=== PATIENT | female | born 1950 | race Caucasian/White ===

== ENCOUNTER 2016-10-30 03:24 | Emergency (ER) | payer OTHER ==
[2016-10-30 03:37] VITALS: BMI 30.5
--- NOTE | 2016-10-30 03:49 | PDOC ---
[id number] No Limitations - History of Present Illness Initial Comments: 10/30/16 05:51 The patient is a 65 year old female with a significant past medical history of bipolar disorder, breast cancer, gastric ulcer, pancreatic cyst who presents to the ED with complaint of abdominal pain and distended belly. Patient presents requesting pain medication. She states that she is able to eat. Denies use of alcohol. PCP - Dr. Falk <Manisha Adame - Last Filed: 10/30/16 06:11> <Bell Márquez - Last Filed: 11/04/16 21:53> - General Chief Complaint: Pain Stated Complaint: ABD PAIN Time Seen by Provider: 10/30/16 03:43 Past History <Manisha Adame - Last Filed: 10/30/16 06:11> - Past Medical History Anemia: No Asthma: No Cancer: Yes (Left breast) Cardiac Disorders: No CVA: No COPD: No CHF: No Dementia: No Diabetes: No GI Disorders: Yes (hx of gastric ulcer. pancreatic cyst) Disorders: No HTN: No Hypercholesterolemia: No Liver Disease: No Seizures: No Thyroid Disease: Yes - Surgical History Abdominal Surgery: No Appendectomy: No Cardiac Surgery: No Cholecystectomy: No Lung Surgery: Yes (removed rt sided partial lobe) Neurologic Surgery: No Orthopedic Surgery: Yes (rt knee surgery with infection) - Immunization History Immunization Up to Date: Yes - Psycho/Social/Smoking Cessation Hx Anxiety: No Suicidal Ideation: No Smoking Status: Yes Smoking History: Current every day smoker Have you smoked in the past 12 months: No Number of Cigarettes Smoked Daily: 20 Information on smoking cessation initiated: No 'Breaking Loose' booklet given: 03/23/16 Hx Alcohol Use: No Drug/Substance Use Hx: No Substance Use Type: None Hx Substance Use Treatment: No <Bell Márquez - Last Filed: 11/04/16 21:53> - Past Medical History Allergies/Adverse Reactions: Allergies Allergy/AdvReac Type Severity Reaction Status Date / Time No Known Drug Allergies Allergy Verified 10/30/16 03:33 Home Medications: Ambulatory Orders Divalproex [Depakote -] 1,000 mg PO BID 03/05/14 Risperidone [Risperdal] 2 mg PO HS 03/05/14 Levothyroxine [Synthroid -] 100 mcg PO DAILY 03/23/16 Oxycodone HCl/Acetaminophen [Percocet 5-325 mg Tablet] 1 tab PO Q6H PRN #10 tablet MDD 4 10/30/16 Review of Systems - Review of Systems Able to Perform ROS?: Yes Comments:: 10/30/16 05:52 GENERAL/CONSTITUTIONAL: No fever or chills. No weakness. HEAD, EYES, EARS, NOSE AND THROAT: No change in vision. No ear pain or discharge. No sore throat. CARDIOVASCULAR: No chest pain or shortness of breath. RESPIRATORY: No cough, wheezing, or hemoptysis. GASTROINTESTINAL: +abdominal pain, +distended abdomen. No nausea, vomiting, diarrhea or constipation. GENITOURINARY: No dysuria, frequency, or change in urination. MUSCULOSKELETAL: No joint or muscle swelling or pain. No neck or back pain. SKIN: No rash NEUROLOGIC: No headache, vertigo, loss of consciousness, or change in strength/ sensation. ENDOCRINE: No increased thirst. No abnormal weight change. HEMATOLOGIC/LYMPHATIC: No anemia, easy bleeding, or history of blood clots. ALLERGIC/IMMUNOLOGIC: No hives or skin allergy. <Manisha Adame - Last Filed: 10/30/16 06:11> *Physical Exam - Vital Signs Last Vital Signs Temp Pulse Resp BP Pulse Ox 98.3 F 84 14 116/77 99 10/30/16 03:34 10/30/16 03:34 10/30/16 03:34 10/30/16 03:34 10/30/16 03:34 - Physical Exam Comments: 10/30/16 05:57 GENERAL: +Afebrile. Awake, alert, and fully oriented, in no acute distress HEAD: No signs of trauma EYES: PERRLA, EOMI, sclera anicteric, conjunctiva clear ENT: Auricles normal inspection, hearing grossly normal, nares patent, oropharynx clear without exudates. Moist mucosa NECK: Normal ROM, supple, no lymphadenopathy, JVD, or masses LUNGS: Breath sounds equal, clear to auscultation bilaterally. No wheezes, and no crackles HEART: Regular rate and rhythm, normal S1 and S2, no murmurs, rubs or gallops ABDOMEN: +Small umbilical hernia, +Distended hernia with fluid wave ascites inside her belly, +Prominent veins on abdominal wall. Soft, nontender, normoactive bowel sounds. No guarding, no rebound. No flank pain. EXTREMITIES: Normal range of motion, no edema. No clubbing or cyanosis. No cords, erythema, or tenderness NEUROLOGICAL: Cranial nerves II through XII grossly intact. Normal speech, normal gait SKIN: Warm, Dry, normal turgor, no rashes or lesions noted. <Manisha Adame - Last Filed: 10/30/16 06:11> - Vital Signs Last Vital Signs Temp Pulse Resp BP Pulse Ox 98.3 F 84 14 116/77 99 10/30/16 03:34 10/30/16 03:34 10/30/16 03:34 10/30/16 03:34 10/30/16 03:34 <Bell Márquez - Last Filed: 11/04/16 21:53> ED Treatment Course - Medications Given in the ED: ED Medications Discontinued Medications Generic Name Dose Route Start Last Admin Trade Name Freq PRN Reason Stop Dose Admin Oxycodone/Acetaminophen 2 combo 10/30/16 03:54 10/30/16 03:58 Percocet 5/325 - PO 10/30/16 03:55 2 combo ONCE ONE Administration <Manisha Adame - Last Filed: 10/30/16 06:11> - LABORATORY CBC & Chemistry Diagram: 10/30/16 06:20 10/30/16 06:20 <Bell Márquez - Last Filed: 11/04/16 21:53> Medical Decision Making - Medical Decision Making 10/30/16 06:55 Pt comes with distended abdomen. SHe states that she has some pain. Admits that her abdomen is always distended. Pt's abdominal XR demonstrates distended loops of bowel consistent with the last XR she had. Pt has normal vitals; non tender abdomen and flank on exam. She is afebrile. SHe has normal HEENT. Pt will have labs sent. I will sign her out to the day ER attending who can disposition the patient. <Bell Márquez - Last Filed: 11/04/16 21:53> *DC/Admit/Observation/Transfer - Attestations Scribe Attestion: 10/30/16 05:52 Documentation prepared by KATINA Bird, acting as medical representative for Bell Márquez MD. <Manisha Adame - Last Filed: 10/30/16 06:11> <Bell Márquez - Last Filed: 11/04/16 21:53> Diagnosis at time of Disposition: Constipation - Discharge Dispostion Disposition: HOME Condition at time of disposition: Improved - Prescriptions Prescriptions: Oxycodone HCl/Acetaminophen [Percocet 5-325 mg Tablet] 1 tab PO Q6H PRN #10 tablet MDD 4 PRN Reason: Pain - Referrals Referrals: Luli Falk MD [Primary Care Provider] - - Patient Instructions Printed Discharge Instructions: Abdominal Hernia, DI for Constipation Additional Instructions: Activity as tolerated. Stay hydrated. Blood tests, a urine test, and an xray of the abdomen showed no acute abnormalities. Continue your medications as previously prescribed by your physician. You should follow up with Dr. Falk regarding today's emergency department visit. Continue follow up with your surgeon regarding your umbilical hernia. You should also see a GI specialist. Return to the emergency department for any new or concerning symptoms, particularly persistent or worsening pain, bloody vomit or stool, inability to have a bowel movement, fevers or chills.
[2016-10-30] MEDS ORDERED: OXYCODONE/APAP 5/325MG COMBO TABLET PO ONE (03:54)
[2016-10-30] MEDS ORDERED: OXYCODONE/APAP 5/325MG COMBO TABLET ONE (03:56)
[2016-10-30 07:14] LABS: BASOPHIL 0.7 % (0-2.0); EOSINOPHIL 2.7 % (0-4.5); MCH 32.6 pg (25.7-33.7); MEAN PLT VOLUME 6.9 fl (7.5-11.1); NEUTROPHILS 59.9 % (42.8-82.8); PLATELET COUNT 250 K/MM3 (134-434); RDW 15.4 % (11.6-15.6); WHITE BLOOD COUNT 6.2 K/mm3 (4.0-10.0)
[2016-10-30 07:33] LABS: ALBUMIN 3.7 g/dl (3.4-5.0); AMYLASE 40 U/L (25-115); ANION GAP 11 (8-16); BILIRUBIN,TOTAL 0.2 mg/dL (0.2-1.0); CALCIUM 8.9 mg/dL (8.5-10.1); CO2 25 mmol/L (21-32); CREATININE 0.9 mg/dL (0.55-1.02); GLUCOSE,RANDOM 116 mg/dL (74-106); SGOT/AST 40 U/L (15-37); SGPT/ALT 24 U/L (12-78)
[2016-10-30 07:34] LABS: ALK PHOS 49 U/L (45-117)
[2016-10-30 07:59] LABS: URINE APPEARANCE CLEAR; URINE BILIRUBIN NEGATIVE (NEGATIVE); URINE BLOOD NEGATIVE (NEGATIVE); URINE COLOR STRAW; URINE GLUCOSE (UA) NEGATIVE (NEGATIVE); URINE KETONE NEGATIVE (NEGATIVE); URINE LEUK ESTERASE NEGATIVE (NEGATIVE); URINE NITRITE NEGATIVE (NEGATIVE); URINE PROTEIN NEGATIVE (NEGATIVE); URINE UROBILINOGEN NEGATIVE E.U./dl (0.2-1.0)
--- NOTE | 2016-10-30 09:44 | PDOC ---
*Physical Exam - Vital Signs Last Vital Signs Temp Pulse Resp BP Pulse Ox 98.3 F 80 18 133/85 99 10/30/16 03:34 10/30/16 07:15 10/30/16 07:15 10/30/16 07:15 10/30/16 07:15 - Physical Exam Comments: 10/30/16 09:40 Vital signs normal. Abdomen distended but soft and nontender, easily reducible umbilical hernia that is chronic. No evidence of volume overload Patient is well-appearing, walking all over the emergency room, speaking full sentences, asking to go home. ED Treatment Course - LABORATORY CBC & Chemistry Diagram: 10/30/16 06:20 10/30/16 06:20 - ADDITIONAL ORDERS Additional order review: Laboratory Results 10/30/16 10/30/16 06:24 06:20 Sodium 137 Potassium 4.1 Chloride 101 Carbon Dioxide 25 Anion Gap 11 BUN 11 Creatinine 0.9 D Creat Clearance w eGFR > 60 Random Glucose 116 H D Calcium 8.9 Total Bilirubin 0.2 D AST 40 H ALT 24 D Alkaline Phosphatase 49 D Total Protein 7.0 Albumin 3.7 Total Amylase 40 Lipase 321 Urine Color Straw Urine Appearance Clear Urine pH 6.0 Ur Specific [place] 1.009 Urine Protein Negative Urine Glucose (UA) Negative Urine Ketones Negative Urine Blood Negative Urine Nitrite Negative Urine Bilirubin Negative Urine Urobilinogen Negative Ur Leukocyte Esterase Negative 10/30/16 06:20 RBC 3.75 MCV 93.0 MCHC 35.0 RDW 15.4 MPV 6.9 L Neutrophils % 59.9 Lymphocytes % 30.6 D Monocytes % 6.1 Eosinophils % 2.7 Basophils % 0.7 - Medications Given in the ED: ED Medications Discontinued Medications Generic Name Dose Route Start Last Admin Trade Name Freq PRN Reason Stop Dose Admin Oxycodone/Acetaminophen 2 combo 10/30/16 03:54 10/30/16 03:58 Percocet 5/325 - PO 10/30/16 03:55 2 combo ONCE ONE Administration Medical Decision Making - Medical Decision Making 10/30/16 09:40 Received signout on this 66-year-old female with chronic abdominal complaints, presented here with some distention but otherwise unremarkable exam. Abdominal x -ray showed chronic small bowel distention, read as unchanged and without acute pathology by radiology. Labs are within normal limits, no leukocytosis, urinalysis clear. Has follow-up appointment with her primary physician on Sunday, wants to go home and is tolerating by mouth, has no red flags on history or physical exam, understands return criteria. *DC/Admit/Observation/Transfer Diagnosis at time of Disposition: Constipation Qualifiers: Constipation type: unspecified constipation type Qualified Code(s): K59.00 - Constipation, unspecified - Discharge Dispostion Disposition: HOME Condition at time of disposition: Improved - Prescriptions Prescriptions: Oxycodone HCl/Acetaminophen [Percocet 5-325 mg Tablet] 1 tab PO Q6H PRN #10 tablet MDD 4 PRN Reason: Pain - Referrals Referrals: Luli Falk MD [Primary Care Provider] - - Patient Instructions Printed Discharge Instructions: DI for Constipation, Abdominal Hernia Additional Instructions: Activity as tolerated. Stay hydrated. Blood tests, a urine test, and an xray of the abdomen showed no acute abnormalities. Continue your medications as previously prescribed by your physician. You should follow up with Dr. Falk regarding today's emergency department visit. Continue follow up with your surgeon regarding your umbilical hernia. You should also see a GI specialist. Return to the emergency department for any new or concerning symptoms, particularly persistent or worsening pain, bloody vomit or stool, inability to have a bowel movement, fevers or chills. - Post Discharge Activity
[2016-10-30 09:59] VITALS: BP 129/83; PULSE 68; TEMP 98.4
== END 2016-10-30 09:59 | disposition home or self-care (01) ==
LOC: JER 03:24
DX: K59.00 Constipation, unspecified (principal); F31.9 Bipolar disorder, unspecified; E07.9 Disorder of thyroid, unspecified; Z87.19 Personal history of other diseases of the digestive system; Z85.3 Personal history of malignant neoplasm of breast
CPT/HCPCS: 36415; 74020-TC; 80053; 81003; 82150; 83690; 85025; 99283-25

== ENCOUNTER 2016-11-10 01:15 | Emergency (ER) | payer OTHER ==
[2016-11-10 01:27] VITALS: BP 120/89; PULSE 86; TEMP 98; BMI 29.0
[2016-11-10] MEDS ORDERED: traMADol HCL 50 MG TABLET PO ONE (04:49)
--- NOTE | 2016-11-10 04:49 | PDOC ---
History of Present Illness <Jd Lockwood - Last Filed: 11/10/16 05:10> - General History Source: Patient Exam Limitations: No Limitations - History of Present Illness Initial Comments: 11/10/16 05:12 The patient is a 66 year old female with significant past medical history of bipolar disorder, breast cancer, gastric ulcer, pancreatic cyst who presents to the ED BIBA for abdominal pain and abdominal distension. Denies nausea, vomiting , or diarrhea. Patient presents requesting pain medication. She states that she is able to eat. The patient denies fever, chills, cough, SOB, chest pain, and palpitations. PCP: Dr. Luli Falk <Rafaela Lyons - Last Filed: 11/10/16 05:13> - General Chief Complaint: Pain Stated Complaint: ABDOMINAL PAIN Past History - Past Medical History Anemia: No Asthma: No Cancer: Yes (Left breast) Cardiac Disorders: No CVA: No COPD: No CHF: No Dementia: No Diabetes: No GI Disorders: Yes (hx of gastric ulcer. pancreatic cyst) Disorders: No HTN: No Hypercholesterolemia: No Liver Disease: No Seizures: No Thyroid Disease: Yes - Surgical History Abdominal Surgery: No Appendectomy: No Cardiac Surgery: No Cholecystectomy: No Lung Surgery: Yes (removed rt sided partial lobe) Neurologic Surgery: No Orthopedic Surgery: Yes (rt knee surgery with infection) - Immunization History Immunization Up to Date: Yes - Psycho/Social/Smoking Cessation Hx Anxiety: No Suicidal Ideation: No Smoking Status: Yes Smoking History: Current every day smoker Have you smoked in the past 12 months: No Number of Cigarettes Smoked Daily: 4 Information on smoking cessation initiated: No 'Breaking Loose' booklet given: 03/23/16 Hx Alcohol Use: No Drug/Substance Use Hx: No Substance Use Type: None Hx Substance Use Treatment: No <Jd Lockwood - Last Filed: 11/10/16 05:10> <Rafaela Lyons - Last Filed: 11/10/16 05:13> - Past Medical History Allergies/Adverse Reactions: Allergies Allergy/AdvReac Type Severity Reaction Status Date / Time No Known Drug Allergies Allergy Verified 11/10/16 01:25 Home Medications: Ambulatory Orders Divalproex [Depakote -] 1,000 mg PO BID 03/05/14 Risperidone [Risperdal] 2 mg PO HS 03/05/14 Levothyroxine [Synthroid -] 100 mcg PO DAILY 03/23/16 Oxycodone HCl/Acetaminophen [Percocet 5-325 mg Tablet] 1 tab PO Q6H PRN #10 tablet MDD 4 10/30/16 Review of Systems - Review of Systems Able to Perform ROS?: Yes Comments:: 11/10/16 05:12 GENERAL/CONSTITUTIONAL: No fever or chills. No weakness. HEAD, EYES, EARS, NOSE AND THROAT: No change in vision. No ear pain or discharge. No sore throat. CARDIOVASCULAR: No chest pain or shortness of breath. RESPIRATORY: No cough, wheezing, or hemoptysis. GASTROINTESTINAL: +abdominal pain, abdominal distension No nausea, vomiting, diarrhea or constipation. GENITOURINARY: No dysuria, frequency, or change in urination. MUSCULOSKELETAL: No joint or muscle swelling or pain. No neck or back pain. SKIN: No rash NEUROLOGIC: No headache, vertigo, loss of consciousness, or change in strength/ sensation. ENDOCRINE: No increased thirst. No abnormal weight change. HEMATOLOGIC/LYMPHATIC: No anemia, easy bleeding, or history of blood clots. ALLERGIC/IMMUNOLOGIC: No hives or skin allergy. <Rafaela Lyons - Last Filed: 11/10/16 05:13> *Physical Exam - Vital Signs Last Vital Signs Temp Pulse Resp BP Pulse Ox 98.0 F 86 14 120/89 96 11/10/16 01:25 11/10/16 01:25 11/10/16 01:25 11/10/16 01:25 11/10/16 01:25 <Jd Lockwood - Last Filed: 11/10/16 05:10> - Vital Signs Last Vital Signs Temp Pulse Resp BP Pulse Ox 98.0 F 86 14 120/89 96 11/10/16 01:25 11/10/16 01:25 11/10/16 01:25 11/10/16 01:25 11/10/16 01:25 - Physical Exam Comments: 11/10/16 05:12 GENERAL: Awake, alert, and fully oriented, in no acute distress HEAD: No signs of trauma EYES: PERRLA, EOMI, sclera anicteric, conjunctiva clear ENT: Auricles normal inspection, hearing grossly normal, nares patent, oropharynx clear without exudates. Moist mucosa NECK: Normal ROM, supple, no lymphadenopathy, JVD, or masses LUNGS: Breath sounds equal, clear to auscultation bilaterally. No wheezes, and no crackles HEART: Regular rate and rhythm, normal S1 and S2, no murmurs, rubs or gallops ABDOMEN: Soft, diffuse tenderness, distended, normoactive bowel sounds. No guarding, no rebound. Reproducible umbilical hernia. EXTREMITIES: Normal range of motion, no edema. No clubbing or cyanosis. No cords, erythema, or tenderness NEUROLOGICAL: Cranial nerves II through XII grossly intact. Normal speech, normal gait SKIN: Warm, Dry, normal turgor, no rashes or lesions noted. <Rafaela Lyons - Last Filed: 11/10/16 05:13> ED Treatment Course - Medications Given in the ED: ED Medications Discontinued Medications Generic Name Dose Route Start Last Admin Trade Name Freq PRN Reason Stop Dose Admin Tramadol HCl 50 mg 11/10/16 04:49 11/10/16 04:51 Ultram - PO 11/10/16 04:50 50 mg ONCE ONE Administration <Rafaela Lyons - Last Filed: 11/10/16 05:13> *DC/Admit/Observation/Transfer - Discharge Dispostion Admit: No Decision to Admit order Date/Time: 11/10/16 05:11 <Jd Lockwood - Last Filed: 11/10/16 05:10> - Attestations Scribe Attestion: 11/10/16 05:12 Documentation prepared by Rafeala Lyons, acting as medical scientific liaison for Jd Lockwood MD, MD <Rafaela Lyons - Last Filed: 11/10/16 05:13> Diagnosis at time of Disposition: Umbilical hernia Qualifiers: Obstruction and gangrene presence: without obstruction or gangrene Qualified Code(s): K42.9 - Umbilical hernia without obstruction or gangrene - Referrals Referrals: Luli Falk MD [Primary Care Provider] - - Patient Instructions Printed Discharge Instructions: Abdominal Hernia Additional Instructions: Please follow up with your PMD today; she is expecting you to call the office. It is essential for you to follow up with your PMD and surgeon.
[2016-11-10] MEDS ORDERED: traMADol HCL 50 MG TABLET ONE (04:50)
== END 2016-11-10 05:15 | disposition home or self-care (01) ==
LOC: JER 01:15
DX: K42.9 Umbilical hernia without obstruction or gangrene (principal); K86.2 Cyst of pancreas; Z85.3 Personal history of malignant neoplasm of breast; Z87.19 Personal history of other diseases of the digestive system
CPT/HCPCS: 99281-25

== ENCOUNTER 2018-06-24 16:07 | Emergency (ER) | payer OTHER ==
--- NOTE | 2018-06-24 16:13 | PDOC ---
Rapid Medical Evaluation Chief Complaint: Eye Problem Time Seen by Provider: 06/24/18 16:09 Medical Evaluation: Allergies Allergy/AdvReac Type Severity Reaction Status Date / Time No Known Drug Allergies Allergy Verified 11/10/16 01:25 06/24/18 16:10 I have performed a brief in-person evaluation of this patient. The patient presents with a chief complaint of:SWELLING / BURNING AND drainage started on left side and moved to right,. No trauma or injury. Vision WNL Pertinent physical exam findings: lid swelling/ injected conjuctivae, white drainage I have ordered the following: nothing The patient will proceed to the ED for further evaluation. Discharge Disposition - Diagnosis Eye discharge - Referrals - Patient Instructions - Post Discharge Activity
[2018-06-24 16:18] VITALS: BP 106/54; PULSE 68; TEMP 98.4; BMI 28.1
--- NOTE | 2018-06-24 16:58 | PDOC ---
History of Present Illness - General Chief Complaint: Eye Problem Stated Complaint: EYE PAIN Time Seen by Provider: 06/24/18 16:09 - History of Present Illness Initial Comments: 06/24/18 16:57 67-year-old female with bilateral eye swelling and drainage 2 days no visual changes or systemic symptoms Past History - Past Medical History Allergies/Adverse Reactions: Allergies Allergy/AdvReac Type Severity Reaction Status Date / Time No Known Drug Allergies Allergy Verified 06/24/18 16:40 Home Medications: Ambulatory Orders Divalproex [Depakote -] 1,500 mg PO BID 03/05/14 Risperidone [Risperdal] 2 mg PO MONTHLY 03/05/14 Levothyroxine [Synthroid -] 100 mcg PO DAILY 03/23/16 Tobramycin 0.3% Ophth Soln [Tobrex Ophthalmic Solution -] 1 drop OU Q4HWA #1 bottle 06/24/18 Anemia: No Asthma: No Cancer: Yes (Left breast) Cardiac Disorders: No CVA: No COPD: No CHF: No Dementia: No Diabetes: No GI Disorders: Yes (hx of gastric ulcer. pancreatic cyst) Disorders: No HTN: No Hypercholesterolemia: No Liver Disease: No Seizures: No Thyroid Disease: Yes - Surgical History Abdominal Surgery: No Appendectomy: No Cardiac Surgery: No Cholecystectomy: No Lung Surgery: Yes (removed rt sided partial lobe) Neurologic Surgery: No Orthopedic Surgery: Yes (rt knee surgery with infection) - Immunization History Immunization Up to Date: Yes - Suicide/Smoking/Psychosocial Hx Smoking Status: Yes Smoking History: Current every day smoker Have you smoked in the past 12 months: Yes Number of Cigarettes Smoked Daily: 4 Information on smoking cessation initiated: No 'Breaking Loose' booklet given: 03/23/16 Hx Alcohol Use: No Drug/Substance Use Hx: No Substance Use Type: None Hx Substance Use Treatment: No Review of Systems - Review of Systems Constitutional: No: Fever HEENTM: Yes: See HPI *Physical Exam - Vital Signs Last Vital Signs Temp Pulse Resp BP Pulse Ox 98.4 F 68 22 H 106/54 L 92 L 06/24/18 16:08 06/24/18 16:08 06/24/18 16:08 06/24/18 16:08 06/24/18 16:08 - Physical Exam Comments: 06/24/18 16:57 Bilateral upper and lower lids swollen conjunctiva injected with yellow crusty discharge on eyelashes Moderate Sedation - Procedure Monitoring Vital Signs: Procedure Monitoring Vital Signs Temperature 98.4 F 06/24/18 16:08 Pulse Rate 68 06/24/18 16:08 Respiratory Rate 22 H 06/24/18 16:08 Blood Pressure 106/54 L 06/24/18 16:08 O2 Sat by Pulse Oximetry (%) 92 L 06/24/18 16:08 *DC/Admit/Observation/Transfer Diagnosis at time of Disposition: Eye discharge, Conjunctivitis - Discharge Dispostion Disposition: HOME Condition at time of disposition: Stable Decision to Admit order: No - Prescriptions Prescriptions: Tobramycin 0.3% Ophth Soln [Tobrex Ophthalmic Solution -] 1 drop OU Q4HWA #1 bottle - Referrals Referrals: Connie Morrow MD [Primary Care Provider] - Ender Long MD [Staff Physician] - - Patient Instructions Printed Discharge Instructions: Conjunctivitis, DI for Conjunctivitis Additional Instructions: Please use the antibiotic drops as directed return to the emergency room should symptoms worsen or go unresolved and follow-up with ophthalmology in one to 2 days for further evaluation and treatment options. - Post Discharge Activity
== END 2018-06-24 17:01 | disposition home or self-care (01) ==
LOC: JERFT 16:07 → JER 16:07 → JERFT 17:01
DX: H10.9 Unspecified conjunctivitis (principal); H57.89 Other specified disorders of eye and adnexa; F17.210 Nicotine dependence, cigarettes, uncomplicated; Z85.3 Personal history of malignant neoplasm of breast
CPT/HCPCS: 99281-25